=== PATIENT | female | born 1975 ===

== ENCOUNTER 2018-06-04 18:23 | Emergency (ER) | payer OTHER ==
[2018-06-04 18:44] VITALS: RESP 18; TEMP 98.4; BMI 38.2
--- NOTE | 2018-06-04 19:14 | ED PDOC ---
Arrival/HPI - General Historian: Patient - History of Present Illness Narrative History of Present Illness (Text): 06/04/18 21:20 42 y/o A4 female with PMH of ectopic who presents to the ED c/o worsening LLQ abdominal pain x 2 weeks. Pain is intermittent and dull. Has associated symptoms of nausea, intermittent headache, lower back pain, and urinary frequency. History of ectopic s/p tube removal, pt unsure of which side. LMP 04/21, sexually active with without protection. Has not taken any medication for pain. Denies fevers, chills, vaginal bleeding, vaginal itching, vaginal odor, dysuria, hematuria, vomiting, diarrhea, constipation, chest pain, SOB, rash, neck pain. <Marce Rico - Last Filed: 06/04/18 20:46> <Magen Olivera - Last Filed: 06/04/18 21:27> - General Chief Complaint: Abdominal Pain Time Seen by Provider: 06/04/18 19:11 Past Medical History - Provider Review Nursing Documentation Reviewed: Yes - Past History Past History: No Previous - Infectious Disease Hx of Infectious Diseases: None - Tetanus Immunization Tetanus Immunization: Unknown - Past Medical History Past Medical History: No Previous - Cardiac Hx Cardiac Disorders: No - Pulmonary Hx Respiratory Disorders: No - Neurological Hx Neurological Disorder: No - HEENT Hx HEENT Disorder: No - Renal Hx Renal Disorder: No - Endocrine/Metabolic Hx Endocrine Disorders: No - Hematological/Oncological Hx Blood Disorders: No - Integumentary Hx Dermatological Disorder: No - Musculoskeletal/Rheumatological Hx Musculoskeletal Disorders: No - Gastrointestinal Hx Gastrointestinal Disorders: No - Genitourinary/Gynecological Hx Genitourinary Disorders: Yes Hx Reproductive Disorders: Yes (ectopic ; miscarriage x 2) - Psychiatric Hx Psychophysiologic Disorder: No Hx Substance Use: No - Surgical History Hx Section: Yes Other/Comment: ectopic , plastic surgery - Anesthesia Hx Anesthesia: Yes Hx Anesthesia Reactions: No Hx Malignant Hyperthermia: No - Suicidal Assessment Feels Threatened In Home Enviroment: No <Marce Rico - Last Filed: 06/04/18 20:46> Family/Social History - Physician Review Nursing Documentation Reviewed: Yes Family/Social History: No Known Family HX Smoking Status: Never Smoked Hx Alcohol Use: No Hx Substance Use: No Hx Substance Use Treatment: No <Marce Rico - Last Filed: 06/04/18 20:46> Allergies/Home Meds <Marce Rico - Last Filed: 06/04/18 20:46> <Magen Olivera - Last Filed: 06/04/18 21:27> Allergies/Adverse Reactions: Allergies No Known Allergies Allergy (Verified 12/30/15 13:50) Review of Systems - Physician Review All systems were reviewed & negative as marked: Yes - Review of Systems Constitutional: Normal. absent: Fatigue, Fevers Eyes: Normal. absent: Vision Changes ENT: Normal Respiratory: Normal. absent: SOB, Cough, Sputum Cardiovascular: Normal. absent: Chest Pain, Palpitations, Syncope Gastrointestinal: Abdominal Pain (suprapubic, LLQ), Nausea. absent: Constipation, Diarrhea, Vomiting, Appetite Changes Genitourinary Female: Frequency, Vaginal Discharge. absent: Dysuria, Vaginal Bleeding Musculoskeletal: Back Pain Skin: Normal. absent: Rash, Skin Lesions Neurological: Headache. absent: Dizziness, Focal Weakness, Speech Changes, Disequilibrium Endocrine: absent: Diaphoresis Hemo/Lymphatic: absent: Adenopathy <Marce Rico - Last Filed: 06/04/18 20:46> Physical Exam Vital Signs Reviewed: Yes Vital Signs Temp Pulse Resp BP Pulse Ox 06/04/18 18:43 98.4 F 100 H 18 141/88 98 Temperature: Afebrile Blood Pressure: Normal Pulse: Regular Respiratory Rate: Normal Appearance: Positive for: Well-Appearing, Non-Toxic, Comfortable Pain Distress: None Mental Status: Positive for: Alert and Oriented X 3 - Systems Exam Pupils: Present: PERRL Extroacular Muscles: Present: EOMI Mouth: Present: Moist Mucous Membranes Neck: Present: Normal Range of Motion. No: MIDLINE TENDERNESS, Paraspinal Tenderness Respiratory/Chest: Present: Clear to Auscultation, Good Air Exchange. No: Respiratory Distress, Accessory Muscle Use Cardiovascular: Present: Regular Rate and Rhythm, Normal S1, S2, Peripheal Pulses Present. No: Murmurs Abdomen: Present: Tenderness (suprapubic, LLQ), Normal Bowel Sounds. No: Distention, Peritoneal Signs, Rebound, Guarding Genitourinary/Pelvic Exam: Present: Normal External Genitalia, Vaginal Discharge (thick, white, curd-like), Cervical os Closed. No: Vaginal Bleeding, Vaginal Lesions, Adenexal Tenderness, Adenexal Mass, Cervical Motion Tendernes, Odor Back: Present: Normal Inspection. No: Midline Tenderness, Paraspinal Tenderness Upper Extremity: Present: Normal Inspection, Normal ROM, NORMAL PULSES Lower Extremity: Present: Normal Inspection, NORMAL PULSES Neurological: Present: GCS=15, CN II-XII Intact, Speech Normal Skin: Present: Warm, Dry, Normal Color. No: Rashes Lymphatic: No: Cervical Adenopathy Psychiatric: Present: Alert, Oriented x 3, Normal Insight, Normal Concentration <Marce Rico - Last Filed: 06/04/18 20:46> Vital Signs Temp Pulse Resp BP Pulse Ox 06/04/18 18:43 98.4 F 100 H 18 141/88 98 <Magen Olivera - Last Filed: 06/04/18 21:27> Medical Decision Making ED Course and Treatment: 06/04/18 19:23 42 y/o A4 female with PMH of ectopic who presents to the ED c/o worsening LLQ abdominal pain x 2 weeks. Pain is intermittent, sharp, and radiates around her left side to the back. Has associated symptoms of nausea, intermittent headache, and urinary frequency. History of ectopic s/p tube removal, pt unsure of which side. LMP 04/21, sexually active with without protection. Has not taken any medication for pain. Denies fevers, chills, vaginal bleeding, vaginal itching, vaginal odor, vomiting, diarrhea, constipation, chest pain, SOB, rash. Physical exam: Normal cardiac and pulmonary exams. Abdominal exam significant for mild suprapubic and LLQ tenderness. No CVA tenderness. will get labs (beta quant, cbc, cmp) will get ua and culture will type and screen will get TV US to r/o ectopic Pelvic exam: Normal external genitalia, no lesions. Vaginal canal with white, thick discharge suspicious of candidal vaginitis. Cervical os closed Pt asymptomatic, no vaginal itching. Will send vaginal culture and treat if results are positive. CBC: WBC 11.5, otherwise wnl CMP: wnl UA: trace blood and leuk esterase Type and Screen: O negative beta-Hc TV US: Findings Single, live intrauterine gestation CRL equivalent to 7wks/3d gestation Gestational sac diameter equivalent to 5wks/6 days gestation age (US estimated): 7 weeks 3 days Heart Rate: 149.19bpm X[place]-gestational hemorrhage: none Uterus measures 10.97x5.71x6.39cm. No mass. Cervix: long and closed measuring 3.82cm. No cervical abnormality seen. Right ovary: not visualized Left ovary: measures 2.5x1.26x2.27cm. No mass. Normal flow. Free fluid: none Other findings: none Impression: Single live intrauterine gestation 7 weeks 3 days based on today's CRL Case discussed with Dr. Olivera, who recommends discharge home with outpatient OBGYN followup. Impression: , Abdominal Pain Plan: Take Tylenol every 4 hours for pain Followup with OBGYN within 2 days Return to ED if symptoms persist or worsen 06/04/18 21:24 Plan discussed with pt who agrees and understands. Pt comfortable with discharge home. <Marce Rico - Last Filed: 06/04/18 20:46> - Lab Interpretations Lab Results: 06/04/18 19:20 06/04/18 19:20 Lab Results 06/04/18 20:08: Urine Color Yellow, Urine Appearance Clear, Urine pH 6.0, Ur Specific [place] >= 1.030, Urine Protein Negative, Urine Glucose (UA) Negative, Urine Ketones Negative, Urine Blood Trace-lysed H, Urine Nitrate Negative, Urine Bilirubin Negative, Urine Urobilinogen 0.2, Ur Leukocyte Esterase Trace H, Urine RBC 0 - 2, Urine WBC 0 - 2, Ur Epithelial Cells 0 - 2, Urine Bacteria Neg 06/04/18 19:20: Beta HCG, Quant [id number] H 06/04/18 19:20: Sodium 138, Potassium 3.8, Chloride 104, Carbon Dioxide 22, Anion Gap 15, BUN 12, Creatinine 0.7, Est GFR ( Amer) > 60, Est GFR (Non- Af Amer) > 60, Random Glucose 167 H, Calcium 9.3, Total Bilirubin 0.2, AST 24, ALT 16, Alkaline Phosphatase 84, Total Protein 7.8, Albumin 4.0, Globulin 3.8, Albumin/Globulin Ratio 1.0 L 06/04/18 19:20: WBC 11.5 H, RBC 4.50, Hgb 13.2, Hct 40.0, MCV 88.9, MCH 29.3, MCHC 33.0, RDW 13.3, Plt Count 324, MPV 10.5, Gran % 73.2 H, Lymph % (Auto) 21.8 L, [place]cl[place] % (Auto) 4.2, Eos % (Auto) 0.7 L, Baso % (Auto) 0.1, Gran # 8.41 H, Lymph # (Auto) 2.5, [place]cl[place] # (Auto) 0.5, Eos # (Auto) 0.1, Baso # (Auto) 0.01 - RAD Interpretation Radiology Orders: 06/04/18 19:11 OB TRANSVAGINAL [US] Stat <Magen Olivera - Last Filed: 06/04/18 21:27> - PA / AUTOMATIC TIRE TE[employer] / Resident Statement MD/DO has examined the patient and agrees with the treatment plan. <Magen Olivera - Last Filed: 06/04/18 21:27> Disposition/Present on Arrival - Present on Arrival Any Indicators Present on Arrival: No History of DVT/PE: No History of Uncontrolled Diabetes: No Urinary Catheter: No History of Decub. Ulcer: No History Surgical Site Infection Following: None - Disposition Have Diagnosis and Disposition been Completed?: Yes Disposition Time: 21:00 Patient Plan: Discharge <Marce Rico - Last Filed: 06/04/18 20:46> <Magen Olivera - Last Filed: 06/04/18 21:27> - Disposition Diagnosis: , Abdominal pain Disposition: HOME/ ROUTINE Patient Problems: Current Active Problems Problem Status Onset Abdominal pain Acute Acute Condition: GOOD Additional Instructions: Take Tylenol every 4 hours for pain Followup with OBGYN within 2 days Return to ED if symptoms persist or worsen Referrals: Jesenia June MD [Primary Care Provider] - Follow up with primary Forms: [employer] (Gambian), WORK NOTE
[2018-06-04 19:43] LABS: BASO # 0.01 K/mm3 (0.0-2.0); BASO % 0.1 % (0.0-3.0); EOS # 0.1 (0.0-0.7); EOS % 0.7 % (1.5-5.0); GRAN # 8.41 (1.4-6.5); GRAN % 73.2 % (50.0-68.0); HEMOGLOBIN 13.2 g/dL (12.0-16.0); LYMPH # 2.5 (1.2-3.4); LYMPH % 21.8 % (22.0-35.0); MEAN CELL VOLUME 88.9 fl (80.0-105.0); MEAN CORPUSCULAR HEMOGLOBIN 29.3 pg (25.0-35.0); MEAN PLATELET VOLUME 10.5 fl (7.0-11.0); MONO # 0.5 (0.1-0.6); MONO % 4.2 % (1.0-6.0); RBC 4.5 10^6/uL (3.5-6.1); RED CELL DISTRIBUTION WIDTH 13.3 % (11.5-14.5); WHITE BLOOD COUNT 11.5 10^3/ul (4.5-11.0)
[2018-06-04 19:44] LABS: ALT/SGPT 16 U/L (7-56); AST/SGOT 24 U/L (14-36); BLOOD UREA NITROGEN 12 mg/dL (7-21); CALCIUM 9.3 mg/dL (8.4-10.5); GFR NON-AFRICAN AMERICAN > 60
[2018-06-04 20:24] LABS: URINE BILIRUBIN NEGATIVE (NEGATIVE); URINE BLOOD TRACE-LYSED (NEGATIVE); URINE GLUCOSE (UA) NEGATIVE (NEGATIVE); URINE LEUKOCYTE ESTERASE TRACE Leu/uL (NEGATIVE); URINE PROTEIN NEGATIVE mg/dL (<30 mg/dL); URINE UROBILINOGEN 0.2 E.U./dL (<1 E.U./dL)
[2018-06-04 20:26] LABS: URINE APPEARANCE CLEAR (CLEAR); URINE COLOR YELLOW (YELLOW)
[2018-06-04 20:31] LABS: URINE BACTERIA NEG (NEG); URINE EPITHELIAL CELLS 0 - 2 /hpf (0-5); URINE RBC 0 - 2 /hpf (0-2); URINE WBC 0 - 2 /hpf (0-6)
[2018-06-04 21:43] VITALS: BP 141/77; PULSE 88; O2SAT 99
--- NOTE | 2018-06-05 12:13 | US ---
Date of service: 06/04/2018 PROCEDURE: First trimester ultrasound HISTORY: OB, r/o ectopic. LMP 04/21. COMPARISON: None TECHNIQUE: Standard protocol for this study/examination. FINDINGS: LMP: 04/21/2018 Prior examinations from the current : None TECHNIQUE: Real-time 2D imaging, duplex and color Doppler. FINDINGS: Cardiac activity: Present Rate: 149 BPM Measurements: [place] rump length: 1.22 cm Gestational age based on CRL 7 weeks 3 days Gestational age 5 weeks 6 days based on gestational sac measurement 1.54 cm Gestational age derived from LMP: 6 weeks 2 days. RENÉE based on LMP: 01/26/2019 RENÉE based on biometry: 01/23/2019 Gestational concordance documented Yolk sac identified Cervix: No Cervical abnormalities: Negative examination for cervical dilatation or effacement. Closed cervix measuring 3.82 cm Subchorionic hemorrhage: None UTERUS: 5.7 x 6.4 x 11 cm. ADNEXA: Right: Not visible Left: 1.2 x 2.3 x 2.5 cm. Normal Doppler arterial waveform documented Fluid in the cul-de-sac: 9 IMPRESSION: Six weeks 5 days live intrauterine gestation. Gestational concordance documented. Limitations of the current examination: Nonvisualization right adnexa. Concordant results (preliminary interpretation) provided by MATEO ARCINIEGA. Procedure Completed: 20:04 Preliminary Report: Dictated and Authenticated: 21:03 Final Interpretation: 12:11 June 05, 2018.
== END 2018-06-04 21:40 | disposition home or self-care (01) ==
LOC: ED 18:23
DX: O26.91 Pregnancy related conditions, unspecified, first trimester (principal); R10.9 Unspecified abdominal pain; Z3A.01 Less than 8 weeks gestation of pregnancy